=== PATIENT | male | born 1955 | race Native Hawaiian/Other Pacific Islander ===

== ENCOUNTER 2017-11-06 12:34 | Outpatient (CLI) | payer OTHER | END 2017-11-06 21:48 | disposition home or self-care (01) | LOC: RAD 12:34 | DX: M79.642 Pain in left hand (principal) ==

== ENCOUNTER 2018-12-06 10:33 | Outpatient (CLI) | payer OTHER | END 2018-12-06 21:02 | disposition home or self-care (01) | LOC: RAD 10:33 | DX: Z01.810 Encounter for preprocedural cardiovascular examination (principal); R07.9 Chest pain, unspecified ==

== ENCOUNTER 2021-08-26 13:19 | Outpatient (CLI) | payer OTHER | END 2021-08-26 19:14 | disposition home or self-care (01) | LOC: RAD 13:19 | PROVIDERS: ATTEND Internal Medicine | DX: R06.00 Dyspnea, unspecified (principal) ==

== ENCOUNTER 2021-09-21 09:09 | Outpatient (CLI) | payer OTHER | END 2021-09-21 19:17 | disposition home or self-care (01) | LOC: CT 09:09 → LABW 09:09 → CT 09:30 | PROVIDERS: ATTEND Internal Medicine | DX: F17.210 Nicotine dependence, cigarettes, uncomplicated (principal) | CPT/HCPCS: 82272; 83630; 87015; 87045; 87324; 87328; 87329; 87449; 87899 ==